=== PATIENT | female | born 1940 | race Caucasian/White ===

== ENCOUNTER → 2017-06-26 | Outpatient (CLI) | payer MEDICARE, BC ==
[~2017-06-26] MED LIST: ASPIRIN E.C. 8181 MG PO; COREG12.5 MG PO; CYCLOBENZAPRINE10 MG PO; NORVASC2.5 MG PO; SIMVASTATIN40 MG PO; TYLENOL PM EXTR1 TA1 PO
== END ==
LOC: MC.RAD 14:50
DX: Z12.31 Encounter for screening mammogram for malignant neoplasm of breast (principal)

== ENCOUNTER → 2018-07-05 | Outpatient (CLI) | payer MEDICARE, BC | LOC: MC.RAD 08:53 | DX: Z12.31 Encounter for screening mammogram for malignant neoplasm of breast (principal) ==

== ENCOUNTER → 2018-11-04 | Outpatient (CLI) | payer MEDICARE, BC | LOC: COL.VAS 08:44 | DX: I05.9 Rheumatic mitral valve disease, unspecified (principal) ==

== ENCOUNTER 2019-02-21 08:46 | Day surgery (SDC) | payer MEDICARE, BC ==
[~2019-02-21] VITALS: Ht 149.9 cm; Wt 63.3 kg
[2019-02-21] MEDS ORDERED: ASPIRIN E.C. 8181 MG PO (09:05)
[2019-02-21] MEDS ORDERED: COZAAR100 MG PO (09:06)
[2019-02-21] MEDS ORDERED: HCTZ12.5TAB PO (09:06)
[2019-02-21] MEDS ORDERED: PEPCID 20MG TAB20 MG PO (09:07)
[2019-02-21] MEDS ORDERED: PROBIOTIC ACID1 EAC3 PO (09:07)
[2019-02-21] MEDS ORDERED: ZYRTEC 10MG10 MG PO (09:08)
[2019-02-21] MEDS ORDERED: VITAMIN D31000 I1 PO (09:08)
[2019-02-21] MEDS ORDERED: RT ADVAIR 128 DISKUS IH (09:09)
[2019-02-21] MEDS ORDERED: BENTYL 20MG20 MG/TAB PO (09:10)
[2019-02-21 09:29] VITALS: BP 154/66; PULSE 67; TEMP 97.1
[2019-02-21 10:30] VITALS: BP 93/54; PULSE 64; TEMP 97.2
--- NOTE | 2019-02-21 10:30 | NUR ---
Pt returned via cart to [facility] 7. A&O. VSS-see flowsheet. Denies complaints. Daughter present in room and able to visit with Dr Graham post procedure. Pt reclined in chair in bay with call light in reach. Given a muffin and coffee per request.
[2019-02-21 10:45] VITALS: BP 144/94; PULSE 64
[2019-02-21 11:00] VITALS: BP 119/50; PULSE 56
--- NOTE | 2019-02-21 11:29 | NUR ---
Pt tolerated muffin and coffee. VS remain stable. Denies complaints. IV removed and pressure dressing applied. Discharge teaching completed, pt and dtr verbalized understanding. Pt taken via wheelchair to private vehicle for dc home with dtr driving.
== END 2019-02-21 11:29 | disposition home or self-care (01) ==
LOC: SDCO 08:46
DX: K52.89 Other specified noninfective gastroenteritis and colitis (principal); K57.30 Diverticulosis of large intestine without perforation or abscess without bleeding; K59.00 Constipation, unspecified; Z79.899 Other long term (current) drug therapy; Z79.82 Long term (current) use of aspirin; J45.909 Unspecified asthma, uncomplicated; R05 Cough; M54.9 Dorsalgia, unspecified; M19.90 Unspecified osteoarthritis, unspecified site; J43.9 Emphysema, unspecified; I10 Essential (primary) hypertension; R35.0 Frequency of micturition; E78.00 Pure hypercholesterolemia, unspecified
CPT/HCPCS: J2250; J3010; J7030

== ENCOUNTER → 2019-07-10 | Outpatient (CLI) | payer MEDICARE, BC ==
[~2019-07-10] MED LIST changes: +BENTYL 20MG20 MG/TAB PO; +COZAAR100 MG PO; +HCTZ12.5TAB PO; +PEPCID 20MG TAB20 MG PO; +PROBIOTIC ACID1 EAC3 PO; +RT ADVAIR 128 DISKUS IH; +VITAMIN D31000 I1 PO; +ZYRTEC 10MG10 MG PO
== END ==
LOC: MC.RAD 11:18
DX: Z12.31 Encounter for screening mammogram for malignant neoplasm of breast (principal)

== ENCOUNTER 2020-05-13 08:08 | Day surgery (SDC) | payer MEDICARE, BC ==
[~2020-05-13] VITALS: Ht 149.9 cm; Wt 61.7 kg
[2020-05-13] VITALS (10 sets, daily range): BP systolic 126–179; BP diastolic 52–75; PULSE 54–65; TEMP 97.9–98.2
[2020-05-13] MEDS ORDERED: ENTOCORT EC3 MG PO (08:31)
[2020-05-13 09:27] LABS: CALCIUM 9.5 mg/dL (8.4-10.2); CREATININE, serum 0.77 (0.52-1.25); HEMATOCRIT 38.7 % (37.0-47.0); MEAN CELL VOLUME 98 fl (80.0-100.0); MEAN CORPUSCULAR HEMOGLOBIN 33 pg (27.0-31.0); MEAN CORPUSCULAR HGB CONC 34 g/dl (33.0-37.0); MEAN PLATELET VOLUME 9.9 fl (7.4-10.4); PLATELET COUNT 253 K/mm3 (130-400); POTASSIUM 3.9 mmol/L (3.4-5.0); RED BLOOD COUNT 3.96 M/mm3 (4.10-5.30); REDCELL DISTRIBUTION WIDTH-CV 13.7 % (11.5-14.5)
[2020-05-13 09:30] LABS: PROTHROMBIN TIME 11.7 SECONDS (9.7-12.8)
--- NOTE | 2020-05-13 12:41 | NUR ---
Pt arrives to medical unit rm [id number] from laboratory operations coordinator, awake but slightly drowsy, oriented x 3, reports soreness to left chest site. Ice pack provided. Provider notified for pain control orders. Left chest dressing CDI. IV abx complete, site flushed, no s/s of infiltration. POC reviewed with pt and pt's daughter. No further needs reported. Call light in reach.
--- NOTE | 2020-05-13 21:00 | NUR ---
Pt assessment completed and documented. Pt resting in bed at this time. Alert and oriented x4. Complaints of aching pain to pacemaker incision site. Gauze dressing to left chest CDI. Left arm in sling. INT to left forearm CDI. Pt denies any needs/concerns. Call light within reach. Will continue to monitor.
[2020-05-14 00:28] VITALS: BP 137/58; PULSE 60; TEMP 97.9
[2020-05-14 03:58] VITALS: BP 159/71; PULSE 60; TEMP 97.6
--- NOTE | 2020-05-14 05:08 | NUR ---
Currently resting in bed. Reporting 2/10 pain to left chest incision site. States pain is better controlled this morning to left chest. PRN percocet given x2 overnight per orders. States she was able to get some sleep overnight but not a lot. Pt denies any needs/concerns. Call light within reach.
[2020-05-14 07:50] VITALS: BP 176/71; PULSE 60; TEMP 98
--- NOTE | 2020-05-14 08:28 | NUR ---
Pt assessment complete. Pt is sitting up in bed eating breakfast, she is A/O x4. Her daughter is at bedside. Pt reports pain 2-3/10 to incision site. Small amount of bruising present, no firm hematoma palpated. No drainage present. LUE in sling. No N/V. POC discussed with patient and her daughter who verbalize understanding. No needs at this time. Call light within reach.
[2020-05-14] MEDS ORDERED: PERCOCET 325 MG1 TA2 PO (10:09)
[2020-05-14] MEDS ORDERED: CARTIA XT180 MG PO (10:09)
[2020-05-14] MEDS ORDERED: CLEOCIN HCL300 MG PO (10:10)
--- NOTE | 2020-05-14 11:28 | NUR ---
Discharge paperwork and instructions reviewed with patient and her daughter. IV to LFA dc'd catheter tip intact. Pt wheeled out of facility at this time.
== END 2020-05-14 11:29 | disposition home or self-care (01) ==
LOC: COL.CAR 08:08 → MEDICAL 12:40 → COL.CAR 05-14 11:29
PROVIDERS: Internal Medicine Cardiovascular Disease
DX: I49.5 Sick sinus syndrome (principal); I47.1 Supraventricular tachycardia; Z88.1 Allergy status to other antibiotic agents; Z88.2 Allergy status to sulfonamides; Z88.5 Allergy status to narcotic agent
CPT/HCPCS: OP; J2250; J3010; J3370; J7050; Q9967

== ENCOUNTER → 2020-09-22 | Outpatient (CLI) | payer MEDICARE, BC ==
[~2020-09-22] MED LIST changes: +CARTIA XT180 MG PO; +CLARITIN 1010 MG/TAB PO; +CLEOCIN HCL300 MG PO; +ENTOCORT EC3 MG PO; +PERCOCET 325 MG1 TA2 PO
== END ==
LOC: MC.RAD 13:45
DX: Z12.31 Encounter for screening mammogram for malignant neoplasm of breast (principal)

== ENCOUNTER 2020-10-08 07:15 | Day surgery (SDC) | payer MEDICARE, BC ==
[~2020-10-08] VITALS: Ht 149.9 cm; Wt 60.2 kg
[~2020-10-08 07:15] MED LIST changes: -CLARITIN 1010 MG/TAB PO
[2020-10-08 07:44] VITALS: BP 160/72; PULSE 61; TEMP 98.5
[2020-10-08] MEDS ORDERED: CLARITIN 1010 MG/TAB PO (08:02)
[2020-10-08 08:35] VITALS: BP 124/62; PULSE 64
--- NOTE | 2020-10-08 08:35 | NUR ---
Pt to GI bay 3 via cart from [facility] assistant. Pt awake and alert. Pt denies pain or nausea. Pt ambulates to recliner with stand by assistance. Warm blanket provided. Coffee, water and apple sauce given per request. Daughter in room. Will continue to monitor. Call light within reach.
[2020-10-08 08:50] VITALS: BP 127/59; PULSE 61
--- NOTE | 2020-10-08 08:50 | NUR ---
Pt tolerating po without c/o nausea. Denies needs. Call light within reach.
[2020-10-08 09:05] VITALS: BP 141/64; PULSE 60
--- NOTE | 2020-10-08 09:05 | NUR ---
Pt continues to rest. Denies needs. into speak with pt. Call light within reach.
--- NOTE | 2020-10-08 09:20 | NUR ---
IV site discontinued with all parts intact. Discharge instructions reviewed. Pt voices understanding. Pt up to dress. Call light within reach.
--- NOTE | 2020-10-08 09:30 | NUR ---
Pt escorted to private car via wheel chair. Pt accompanied home by her daughter.
== END 2020-10-08 09:30 | disposition home or self-care (01) ==
LOC: SDCO 07:15
DX: K21.9 Gastro-esophageal reflux disease without esophagitis (principal); K92.1 Melena; D64.9 Anemia, unspecified; E78.5 Hyperlipidemia, unspecified; J30.9 Allergic rhinitis, unspecified; J44.9 Chronic obstructive pulmonary disease, unspecified; I25.10 Atherosclerotic heart disease of native coronary artery without angina pectoris; I10 Essential (primary) hypertension; G47.33 Obstructive sleep apnea (adult) (pediatric); M19.90 Unspecified osteoarthritis, unspecified site; D80.4 Selective deficiency of immunoglobulin M [IgM]; H35.30 Unspecified macular degeneration; Z20.822 Contact with and (suspected) exposure to COVID-19; Z90.89 Acquired absence of other organs; Z88.1 Allergy status to other antibiotic agents; Z88.2 Allergy status to sulfonamides; Z88.8 Allergy status to other drugs, medicaments and biological substances; Z88.5 Allergy status to narcotic agent; Z88.0 Allergy status to penicillin
CPT/HCPCS: J2704

== ENCOUNTER 2021-08-31 12:23 | Day surgery (SDC) | payer MEDICARE, BC ==
[2021-08-31] VITALS (9 sets, daily range): BP systolic 119–160; BP diastolic 60–90; PULSE 60–66; TEMP 98.4
[~2021-08-31] VITALS: Ht 144.8 cm; Wt 60.6 kg
[~2021-08-31 12:23] MED LIST changes: +CLARITIN 1010 MG/TAB PO
[2021-08-31 13:08] LABS: HEMATOCRIT 38.1 % (37.0-47.0); HEMOGLOBIN 12.7 g/dl (12.5-16.0); MEAN CELL VOLUME 99 fl (80.0-100.0); MEAN CORPUSCULAR HEMOGLOBIN 33 pg (27-31); MEAN CORPUSCULAR HGB CONC 33 g/dl (33.0-37.0); MEAN PLATELET VOLUME 9.6 fl (7.4-10.4); PLATELET COUNT 271 K/mm3 (130-400); RED BLOOD COUNT 3.85 M/mm3 (4.10-5.30); REDCELL DISTRIBUTION WIDTH-CV 14.1 % (11.5-14.5)
[2021-08-31 13:22] LABS: CALCIUM 8.9 mg/dL (8.4-10.2); CREATININE, serum 0.94 mg/dL (0.57-1.11); PARTIAL THROMBOPLASTIN TIME 26.7 SECONDS (26.0-37.0); POTASSIUM 3.9 mmol/L (3.5-4.5)
[2021-08-31] MEDS ORDERED: MAGNESIUM200 MG PO (13:26)
[2021-08-31] MEDS ORDERED: CALTRATE-600 W600 MG PO (13:27)
[2021-08-31] MEDS ORDERED: B-121000 MCG PO (13:28)
[2021-08-31] MEDS ORDERED: VITAMIN E 400 U4001 PO (13:29)
--- NOTE | 2021-08-31 14:34 | NUR ---
PATIENT ALERT AND ORIENTED, DENIES CHEST PAIN. FAMILY IN WAITING ROOM. VERBALIZES UNDERSTANDING OF PROCEDURE. PLEASE SEE MERGE FOR COMPLETE DOCUMENTATION WELL MEDICATION ADMINISTRATION AND VITALS AND LEVEL OF SEDATION.
[2021-08-31] MEDS ORDERED: CORDARONE200 MG/TAB PO (15:15)
[2021-08-31] MEDS ORDERED: ZEBETA 5MG5 MG PO (15:17)
--- NOTE | 2021-08-31 17:53 | NUR ---
-Air in TR band upon arrival to : 12ml; TR band placed at 1500 -1700: 3ml of air released from band, 9ml air remaining; pulses intact, without N/T or hematoma around site -1730: 4ml released, 5ml remaining; no change to site from 1700 -1740: 2ml released, 3ml remaining; no change to site -175: 3ml released, TR band taken down without incident; R radial site dressing with 4x4s, Tegaderm, and Coban; R radial site CDI, moderate ecchymosis around insertion site but without hematoma or pain -175: PIV discontinued from [facility]; education given to pt and daughter at bedside -180: Pt verbalized comfort in discharging and no questions or concerns; escorted via wheelchair to daughters car -175: Daughter helped pt dress self in room -1800:
== END 2021-08-31 18:05 | disposition home or self-care (01) ==
LOC: COL.CAR 12:23
PROVIDERS: Internal Medicine Cardiovascular Disease
DX: I25.110 Atherosclerotic heart disease of native coronary artery with unstable angina pectoris (principal); I47.2 Ventricular tachycardia; I10 Essential (primary) hypertension; E78.49 Other hyperlipidemia; I34.0 Nonrheumatic mitral (valve) insufficiency; R01.1 Cardiac murmur, unspecified; Z95.0 Presence of cardiac pacemaker; Z87.891 Personal history of nicotine dependence; Z79.899 Other long term (current) drug therapy; Z79.82 Long term (current) use of aspirin
CPT/HCPCS: J1644; J2250; J3010

== ENCOUNTER → 2021-10-11 | Outpatient (CLI) | payer MEDICARE, BC ==
[~2021-10-11] MED LIST changes: +B-121000 MCG PO; +CALTRATE-600 W600 MG PO; +CORDARONE200 MG/TAB PO; +MAGNESIUM200 MG PO; +VITAMIN E 400 U4001 PO; +ZEBETA 5MG5 MG PO
== END ==
LOC: MC.RAD 10:17
DX: Z12.31 Encounter for screening mammogram for malignant neoplasm of breast (principal)

== ENCOUNTER 2022-11-04 10:15 | Emergency (ER) | payer MEDICARE, BC ==
[~2022-11-04] VITALS: Ht 144.8 cm; Wt 67.7 kg
[2022-11-04 10:20] VITALS: TEMP 97.9
[2022-11-04 11:43] LABS: BASO # 0.1 K/mm3 (0.0-0.2); BASO % 0.5 % (0.0-2.0); EOS # 0.1 K/mm3 (0.0-0.7); EOS % 1.2 % (0.0-4.0); GRAN # 8.6 K/mm3 (1.4-6.5); GRAN % 79.9 % (42.2-75.2); HEMATOCRIT 38.1 % (37.0-47.0); HEMOGLOBIN 12.7 g/dl (12.5-16.0); LYMPH # 0.9 K/mm3 (1.2-3.4); LYMPH % 8.2 % (20.0-51.0); MEAN CELL VOLUME 102 fl (80.0-100.0); MEAN CORPUSCULAR HEMOGLOBIN 34 pg (27-31); MEAN CORPUSCULAR HGB CONC 33 g/dl (33.0-37.0); MEAN PLATELET VOLUME 9.4 fl (7.4-10.4); MONO % 9.3 % (1.7-9.3); PLATELET COUNT 292 K/mm3 (130-400); RED BLOOD COUNT 3.73 M/mm3 (4.10-5.30); REDCELL DISTRIBUTION WIDTH-CV 14.5 % (11.5-14.5)
[2022-11-04] MEDS ORDERED: CEPHALEXIN500 M1 PO (12:00)
[2022-11-04 12:02] LABS: ALBUMIN 3.3 gm/dL (3.4-4.8); BILIRUBIN,TOTAL 0.6 mg/dL (0.2-1.2); C-REACTIVE PROTEIN 12.92 mg/dL (0.00-0.50); CALCIUM 9.2 mg/dL (8.4-10.2); CREATININE, serum 1.38 mg/dL (0.57-1.11); TOTAL PROTEIN 6.6 gm/dL (6.2-8.1)
[2022-11-04 12:35] VITALS: BP 150/69; PULSE 62
[2022-11-05] MEDS ORDERED: CORDARONE200 MG/TAB PO (15:27)
[2022-11-05] MEDS ORDERED: FLONASEALLERGY (17:17)
== END 2022-11-04 12:38 | disposition home or self-care (01) ==
LOC: COL.ER 10:15
PROVIDERS: Physician Assistant
DX: L03.113 Cellulitis of right upper limb (principal); Z87.891 Personal history of nicotine dependence; Z88.0 Allergy status to penicillin; Z88.2 Allergy status to sulfonamides; Z88.1 Allergy status to other antibiotic agents

== ENCOUNTER → 2023-03-08 | Outpatient (CLI) | payer MEDICARE, BC ==
[~2023-03-08] MED LIST changes: +CEPHALEXIN500 M1 PO; +FLONASEALLERGY; +ZEBETA10 MG PO
== END ==
LOC: COL.RAD 07:15
DX: I73.89 Other specified peripheral vascular diseases (principal); I70.201 Unspecified atherosclerosis of native arteries of extremities, right leg

== ENCOUNTER → 2023-03-26 | Outpatient (CLI) | payer MEDICARE, BC | LOC: CANSCHCLI → COL.PUL 08:50 | DX: R06.02 Shortness of breath (principal) ==

== ENCOUNTER 2023-04-18 15:51 | Emergency (ER) | payer MEDICARE, BC ==
[2023-04-18 18:22] VITALS: BP 122/68; PULSE 62; TEMP 97.8
== END 2023-04-18 18:30 | disposition home or self-care (01) ==
LOC: COL.ER 15:51
DX: S51.811A Laceration without foreign body of right forearm, initial encounter (principal); M54.2 Cervicalgia; M25.511 Pain in right shoulder; M25.551 Pain in right hip; R51.9 Headache, unspecified; W18.30XA Fall on same level, unspecified, initial encounter; W22.8XXA Striking against or struck by other objects, initial encounter

== ENCOUNTER → 2024-02-11 | Outpatient (CLI) | payer MEDICARE | LOC: MC.RAD 10:56 | DX: R92.8 Other abnormal and inconclusive findings on diagnostic imaging of breast (principal); N63.10 Unspecified lump in the right breast, unspecified quadrant ==